=== PATIENT | female | born 1960 | race Caucasian/White ===

== ENCOUNTER 2018-03-31 09:49 | Outpatient (CLI) | payer MEDICAID, SELFPAY ==
[2018-03-31 10:07] VITALS: BP 125/81; PULSE 74; RESP 18; TEMP 36.8; O2SAT 99
[2018-03-31] MEDS: Omnipaque 240 MG/ML 50 ML BTL IJ (11:17)
--- NOTE | 2018-03-31 11:19 | DI.RAD_ITS ---
SYMPTOMS/DIAGNOSIS: LUMBAR RADICULOPATHY C-ARM FLUOROSCOPY OF THE LUMBAR SPINE: Fluoroscopy Time: 24 sec, 9.70 mGy Fluoroscopy was provided for Dr. Keller for guidance with lumbar spine pain clinic injection. Please see procedure note for details.
[2018-03-31] MEDS: methylPREDNISolone ACETATE 40 MG/ML VIAL IJ (11:24)
[2018-03-31 11:25] VITALS: BP 115/84; PULSE 71; RESP 17; O2SAT 98
--- NOTE | 2018-03-31 11:27 | PDOC.PAIN_ITS ---
Pain Clinic Procedure Note Current Active Problems Problem Status Onset Lumbar radiculitis Acute EPIDURAL STEROID WITH CATHETER INJECTION PROCEDURE NOTE COMMENTS: Patient has spondylolisthesis at L4-5. There is also foraminal stenosis on the right at that level her pain is more right she is noted some l eft lower extremity pain over the last 2 weeks L4-5 ULICES DAI has been referred to the [facility] for lumbar epidural steroid injection. Patient was greeted by the nurse who verified patients name and . Patient was then taken to the fluoroscopy suite. Patient was interviewed and the medical record reviewed. There were no medical, pharmacologic, radiographic, or other structural contraindications to attempting fluoroscopically guided lumbar epidural steroid injection. Risks and expected side effects as well as potential benefits of the procedure were reviewed and voiced concerns addressed. The patient consent form was signed and witnessed. Standard time-out procedure was performed. Patient was placed in the prone position on the fluoroscopy table and automated blood pressure cuff and pulse oximeter applied. The skin entry point for entering/approaching the epidural space by a {L4-5} and marked. Following thorough chlorhexadine preparation of the skin and draping and 1% lidocaine infiltration of the skin entry point and subcutaneous tissues, a 17 gauge Touhy needle was placed under fluoroscopic guidance and with loss of resistance technique into the epidural space. Needle tip placement and depth were aided and confirmed by fluoroscopy. There was no paresthesia or return of blood or CSF through the needle. An Arrow cath was thread to the {right} and 1 cc's of Omnipaque 240 was injected with clear epidural spread confirmed with fluoroscopy. 80mg depomedrol was injected. There was not any unusual discomfort expressed. Vital signs were stable throughout the procedure and were as recorded in nursing records. Follow up plans and appointments were discussed.Post procedure instruction was given as documented in nursing records and having met discharge criteria and was discharged from the [facility]. COMMENTS: f/u prn. consider repeat or [facility]ESI
== END 2018-03-31 10:09 ==
PROVIDERS: PCP Nurse Practitioner; Visit Provider Anesthesiology Pain Medicine
DX: M54.16 Radiculopathy, lumbar region (principal)
CPT/HCPCS: 62323; 72100; J1030; Q9967